=== PATIENT | male | born 1990 | race Caucasian/White ===

== ENCOUNTER 2024-04-23 00:07 | Emergency (ER) | payer SELFPAY ==
[~2024-04-23] VITALS: Ht 165.1 cm; Wt 69.4 kg
[2024-04-23] MEDS ORDERED: HYDROMORPHONE 1 MG/1 ML DISP.SYRIN ONE (00:42)
[2024-04-23] MEDS ORDERED: ONDANSETRON 4 MG/2 ML VIAL ONE (00:42)
[2024-04-23] MEDS: IV NORMAL SALINE 1000 ML BAG IV ONE (00:54)
[2024-04-23] MEDS: HYDROMORPHONE 1 MG/1 ML DISP.SYRIN IV ONE (00:54)
[2024-04-23] MEDS: ONDANSETRON 4 MG/2 ML VIAL IV ONE (00:54)
[2024-04-23 01:10] LABS: CREATININE 1.2 mg/dL (0.6-1.3); POTASSIUM 3.8 mmol/L (3.5-5.1)
[2024-04-23 01:12] LABS: BASOPHILS # (AUTO) 0.1 K/UL (0.0-0.2); BASOPHILS % (AUTO) 0.6 % (0.0-2.0); EOSINOPHILS # (AUTO) 0.1 K/uL (0.0-0.7); EOSINOPHILS % (AUTO) 0.4 % (0.0-7.0); HEMATOCRIT 44.1 % (36.7-47.1); HEMOGLOBIN 14.9 g/dL (12.5-16.3); LYMPHOCYTES # (AUTO) 0.6 K/uL (0.8-4.8); LYMPHOCYTES % (AUTO) 4.5 % (20.5-51.5); MEAN CORPUSCULAR HGB CONC 34 g/dL (32.5-36.3); MONOCYTES # (AUTO) 0.7 K/uL (0.1-1.30); MONOCYTES % (AUTO) 5.3 % (0.0-11.0); NEUTROPHILS # (AUTO) 12.2 K/uL (1.8-8.9); NEUTROPHILS % (AUTO) 89.2 % (38.5-71.5); PLATELET COUNT (AUTO) 302 K/uL (152-348); RED BLOOD CELL COUNT(AUTO) 4.79 MIL/uL (4.06-5.63); RED CELL DISTRIBUTION WIDTH 13.2 % (12.1-16.2); WHITE BLOOD COUNT (AUTO) 13.7 K/uL (3.6-10.2)
[2024-04-23 01:15] LABS: DIFFERENTIAL COMMENT 1
[2024-04-23 01:16] LABS: *OCCULT BLOOD STOOL NEGATIVE (NEGATIVE); ALBUMIN 5.1 g/dL (3.4-5.0); BILIRUBIN,DIRECT 0.3 mg/dL (0.0-0.2); BILIRUBIN,TOTAL 1.7 mg/dL (0.2-1.0); TOTAL PROTEIN, SERUM 8.8 g/dL (6.4-8.2)
[2024-04-23] MEDS ORDERED: DICYCLOMINE HCL LIQ 10 MG/5 ML UDC ONE (01:26)
[2024-04-23] MEDS: DICYCLOMINE HCL LIQ 10 MG/5 ML UDC PO ONE (01:29)
[2024-04-23] MEDS ORDERED: DICY20TA11 PO (01:37)
[2024-04-23] MEDS ORDERED: ONDA4TAB11 PO (01:37)
[2024-04-23] MEDS ORDERED: LOPE2TAB25 PO (01:37)
[2024-04-23 01:59] VITALS: BP 112/65; TEMP 98.7; O2SAT 99
== END 2024-04-23 01:50 | disposition home or self-care (01) ==
LOC: ER 00:18
DX: R19.7 Diarrhea, unspecified (principal); R10.84 Generalized abdominal pain; R11.2 Nausea with vomiting, unspecified
CPT/HCPCS: 99284; 96374; 96361; 96375; 82270; 80076; 80048; 83690; 85025; 89055; 36415; J2405; J1170; J7040; A4606; A4663